=== PATIENT | female | born 1960 | race Asian ===

== ENCOUNTER 2018-04-24 21:47 | Emergency (ER) | payer OTHER ==
[2018-04-24] MEDS ORDERED: IBUPROFEN 600 MG TABLET PO ONE (23:26)
[2018-04-24] MEDS ORDERED: CYCLOBENZAPRINE HCL 10 MG TABLET PO ONE (23:26)
--- NOTE | 2018-04-25 00:22 | EKG REPORT ---
SEVERITY:- NORMAL ECG - SINUS RHYTHM : Confirmed by: Dorcas Borden MD 25-Apr-2018 00:21:37
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
[2018-04-25 01:18] VITALS: BP 170/82
== END 2018-04-25 01:10 | disposition home or self-care (01) ==
LOC: ER 21:47
DX: M54.5 Low back pain (principal); M25.561 Pain in right knee; V89.2XXA Person injured in unspecified motor-vehicle accident, traffic, initial encounter
CPT/HCPCS: 71046; 93005; 93010; 99284